=== PATIENT | female | born 1990 | race Caucasian/White ===

== ENCOUNTER 2022-02-02 12:21 | Emergency (ER) | payer OTHER, SELFPAY ==
[2022-02-02 12:30] VITALS: BP 90/69; PULSE 88; RESP 16; TEMP 36.7; O2SAT 99
--- NOTE | 2022-02-02 12:39 | ED.ABDPAIN ---
HPI - Abdominal Pain General Chief Complaint: Abdominal Pain Stated Complaint: abd pain Time Seen by Provider: 02/02/22 12:39 Source: patient Mode of arrival: ambulatory Limitations: no limitations History of Present Illness HPI narrative: 31-year-old female presents with complaint of intermittent epigastric pain for 6 or more months. States that she has pain approximately 15 minutes after she starts eating and lasts 1 to 2 hours. Did go to the ER when pain first started and was told that she had some gallbladder inflammation. Was supposed to follow-up with a GI specialist but the appointment was canceled. States that she has discussed pain with her PCP but she blows off her complaints . Patient states that she is here today for a referral for a new primary care physician. Is currently not having abdominal pain. All systems reviewed and negative except as noted above. Related Data Home Medications Medication Instructions Recorded Confirmed No Home Medications 02/02/22 02/02/22 Allergies Allergy/AdvReac Type Severity Reaction Status Date / Time No Known Allergies Allergy Verified 02/02/22 12:43 Review of Systems Review of Systems: CONSTITUTIONAL: Denies fever, chills, or sweats. EYES: Denies visual changes, redness, or discharge. ENT: Denies rhinorrhea, congestion, sore throat, or otalgia. CARDIOVASCULAR: Denies chest pain, palpitations, or edema. RESPIRATORY: Denies cough or dyspnea. GASTROINTESTINAL: Reports intermittent epigastric pain and nausea. No vomiting or diarrhea. GENITOURINARY: Denies dysuria or hematuria. SKIN: Denies rash or itching. MUSCULOSKELETAL: Denies back pain, joint pain, or myalgia. NEUROLOGIC: Denies headache, numbness, or weakness. PSYCHIATRIC: Denies anxiety or depression. All other systems reviewed are negative, except as documented in HPI. PMFSH Comments At time of signature, agree with nursing past medical, surgical, social and family history. There is no relevant family history pertinent to the presenting complaint. Exam Narrative: GENERAL: This is a well-nourished, well-developed patient, in no apparent distress. HEAD: normocephalic, atraumatic. EYES: PERRL. Sclera clear/white. Vision is grossly intact. EARS: External ears normal NOSE: External nose normal NECK: Neck supple, non-tender without lymphadenopathy, masses or thyromegaly. CARDIOVASCULAR: Regular rate and rhythm without murmurs, gallops, or rubs. RESPIRATORY: Clear to auscultation. Breath sounds equal bilaterally. No wheezes, rales, or rhonchi. GASTROINTESTINAL: Abdomen soft, non-tender, nondistended. Bowel sounds are active. No hepato-splenomegaly, or palpable masses. No guarding. SKIN: warm, Dry, intact with no suspicious lesions or rash, good texture and turgor. NEURO: awake, alert, and oriented to person, place and time. There were no obvious focal neurologic abnormalities. EXTREMITIES: Normal range of motion to all extremities. Course Course Level of Care: Express Care Visit Vital Signs Vital signs: Vital Signs Temperature 36.7 C 02/02/22 12:30 Pulse Rate 88 02/02/22 12:30 Respiratory Rate 16 02/02/22 12:30 Blood Pressure 90/69 L 02/02/22 12:30 Pulse Oximetry 99 02/02/22 12:30 Temperature 36.7 C 02/02/22 12:43 Pulse Rate 88 02/02/22 12:43 Respiratory Rate 16 02/02/22 12:43 Blood Pressure 90/69 L 02/02/22 12:43 Pulse Oximetry 99 02/02/22 12:43 Reviewed MDM - Abdominal Pain MDM Narrative Medical decision making narrative: Patient given primary care physician booklet and referral phone number. Patient is aware of diagnosis, understands and agrees to treatment plan. Anticipatory guidance given. Patient agrees to follow-up as directed and is aware of reasons to seek care at the emergency department. Portions of this record may have been created with voice recognition software Discharge Plan Discharge Clinical Impression: Acute epigastric pain Patient Dispo
[2022-02-02 12:43] VITALS: BP 90/69; PULSE 88; RESP 16; TEMP 36.7; O2SAT 99
== END 2022-02-02 12:47 | disposition home or self-care (01) ==
PROVIDERS: Emergency Provider Nurse Practitioner Family
DX: R10.13 Epigastric pain (principal)
CPT/HCPCS: 99202; G0463